=== PATIENT | male | born 1995 | race Caucasian/White ===

== ENCOUNTER 2021-12-11 08:31 | Outpatient (REF) | payer SELFPAY | END 2021-12-11 08:32 | disposition home or self-care (01) | LOC: HO.HOSX 08:31 | PROVIDERS: Visit Provider Physician Assistant | DX: Z13.89 Encounter for screening for other disorder (principal) ==

== ENCOUNTER 2021-12-12 07:47 | Outpatient (REF) | payer OTHER, SELFPAY ==
--- NOTE | ~2021-12-12 | XR_ITS ---
EXAMINATION: XR SHOULDER, RIGHT CLINICAL INFORMATION: Pain COMPARISON: None TECHNIQUE: 3 views of the right shoulder. FINDINGS: The bones and soft tissues are normal. No fracture. Glenohumeral and acromioclavicular alignment is anatomic with normal joint space. No abnormal soft tissue calcifications. XR/XR shoulder RT min 2V IMPRESSION: Normal right shoulder.
== END 2021-12-12 07:48 | disposition home or self-care (01) ==
LOC: HO.HOSX 07:47
PROVIDERS: Visit Provider Physician Assistant
DX: M25.511 Pain in right shoulder (principal); M25.311 Other instability, right shoulder; M24.811 Other specific joint derangements of right shoulder, not elsewhere classified
CPT/HCPCS: 73030

== ENCOUNTER 2022-05-22 06:06 | Day surgery (SDC) | payer OTHER, SELFPAY ==
--- NOTE | 2022-05-21 08:16 | HO.ANESPROP2 ---
Documented by User: Shefali Duvall NP 05/21/22 08:16 HPI - Anesthesia Eval Consult details Narrative: 26yo M for Right Shoulder Arthroscopy possible bicep tenodesis [facility] Active Problems Active Problems: All Active Problems (Updated 05/17/22 @ 16:22 by Leyla Flores RN) Internal derangement of right shoulder (Acute) Instability of right shoulder joint (Acute) Past Medical History Medical History Asthma Surgical History Surgical History History of hand surgery Social History Social History Alcohol intake: current Alcohol intake frequency: holidays/special occasions only Patient Tobacco Use Status: Former Tobacco user Current occupational status: employed Current occupation: [employer], right handed Meds Allergies Allergy/AdvReac Type Severity Reaction Status Date / Time No Known Allergies Allergy Verified 05/22/22 06:12 Home Medications Medication Instructions Recorded Confirmed Last Taken Type albuterol sulfate 90 mcg/actuation 2 puff inhalation QID PRN wheezing 05/17/22 05/17/22 Unknown History aerosol inhaler (Ventolin HFA) Exam Exam Date and Time: May 21, 2022 0816 Assessment and Plan Assessment Anesthesia Assessment: Chart Reviewed Documented by User: Isaiah Valdivia MD 05/22/22 16:07 [facility] Past Medical History Medical History Asthma Functional capacity: independent ambulation Family History Family history of problems with anesthesia: No Surgical History Surgical History History of hand surgery History of Problems with Anesthesia: No Social History Social History Alcohol intake: current Alcohol intake frequency: holidays/special occasions only Patient Tobacco Use Status: Former Tobacco user Current occupational status: employed Current occupation: [employer], right handed Meds Allergies Allergy/AdvReac Type Severity Reaction Status Date / Time No Known Allergies Allergy Verified 05/22/22 06:12 Home Medications Medication Instructions Recorded Confirmed Last Taken Type albuterol sulfate 90 mcg/actuation 2 puff inhalation QID PRN wheezing 05/17/22 05/17/22 Unknown History aerosol inhaler (Ventolin HFA) Exam Airway Mallampati Class: III TM Dist: >3cm Neck ROM: Full Loose/Missing/Broken Teeth: Yes Heart: S1,S2 Lungs: b/l breath sounds Assessment and Plan Assessment Anesthesia Assessment: Anesthesia Plan Discussed Final Anesthetic Review Family History of Problems with Anesthesia: No History of Problems with Anesthesia: No NPO: Yes ASA Class: II Final Preanesthetic Review: Meds/Allgs Chart Reviewed, Consent Obtained/Reviewed and Anes Risks/Benef Reviewed Patient Risk: Intermediate Procedure Risk: Intermediate Anesthetic Plan Anesthetic Plan: GA and Regional Block Disposition: Standard PACU
[2022-05-22] VITALS (14 sets, daily range): BP systolic 123–157; BP diastolic 57–109; PULSE 58–92; RESP 15–18; TEMP 36.1–36.5; O2SAT 97–99; BMI 26.6
[2022-05-22] MEDS: Lactated Ringers 1,000 ML 100 ML IVCONT (06:41)
--- NOTE | 2022-05-22 09:07 | MHC.SHP ---
Pre-Procedural Eval Section A Date of Service: 05/22/22 The patient is an INPATIENT: No Changes since office visit: No Cold of Flu in the past 2 weeks, No New Medical Problems, No Changes in Medication and No Patient answered all questions The History & Physical has been completed within 30 days and I have reviewed it.: Yes Section B Chief Complaint: Other instability, right shoulder Allergies: Allergies Allergy/AdvReac Type Severity Reaction Status Date / Time No Known Allergies Allergy Verified 05/22/22 06:12 Plan I have reviewed the history and physical and performed a pertinent physical examination on my patient. No changes have occurred unless specified. Time Spent With Patient Time: Total time managing care of this patient today ____ minutes.
--- NOTE | 2022-05-22 09:08 | PM.OP ---
Brief Operative Note Date of Service: 05/22/22 Pre-op diagnosis: Right shoulder SLAP tear Post-op diagnosis: other (Right shoulder subscapularis tear and posterior labral tear) Procedure: RIght shoulder subscapularis repair and labral debridement Implants: Casanova and Nephew Helacoil 5.0 x1 Surgeon: Bora Donovan MD Anesthesia: GETA and regional Was an Surveillance Systems Engineer used for this Procedure?: Yes Surveillance Systems Engineer: Shira Zaragoza Estimated blood loss (mL): 10 IV fluids (mL): 1,000 Pathology: none sent Condition: stable Disposition: PACU
[2022-05-22] MEDS: HYDROmorphone HCl 0.5 MG/0.5 ML SYRINGE 0.25 MG IVPUSH ×4 (09:44→10:27)
[2022-05-22] MEDS: oxyCODONE HCl Immed Release 5 MG TABLET PO (09:44)
[2022-05-22] MEDS: Acetaminophen 1,000 MG/100 ML PIGGYBACK 400 MG IV (10:02)
--- NOTE | 2022-05-23 08:52 | W.PM.OPN ---
Operative Note Operative Note Date of Service: 05/22/22 Narrative: Date of Service: 05/22/22 Pre-op diagnosis: Right shoulder SLAP tear Post-op diagnosis: other (Right shoulder subscapularis tear and posterior labral tear) Procedure: RIght shoulder subscapularis repair and labral debridement Implants: Casanova and Nephew Helacoil 5.0 x1 Surgeon: Bora Donovan MD Anesthesia: GETA and regional Was an Drum Printer used for this Procedure?: Yes Drum Printer: Shira Zaragoza Estimated blood loss (mL): 10 IV fluids (mL): 1,000 Pathology: none sent Condition: stable Disposition: PACU Procedure in detail: Procedure in detail: Patient was brought to the operating room and placed the the beach chair position. All bony prominences were well padded and the limb was prepped and draped in standard sterile fashion. A time out was called to identify proper site, proper procedure and proper surgeon. IV antibiotics per weight were administered. I began by making a posterolateral stab incision with a 15 blade. A blunt trochar was placed into the glenohumeral joint and I insufflated the joint with saline and a 30 degree arthroscope was placed. I established an outside- in anterior portal just distal to the biceps tendon. I then began my inspection of the glenohumeral joint. The biceps/superior labral complex was intact. There was fraying of the posterior labrum and an assoicated Uriarte lesion. There was no undersurface superior RTC tearing. There was however a high grade partial thickness tear of the subscapularis. There was partial delamination off the superior aspect of the subscapularis. There were intact fibers attached to the humeral insertion. I used a shaver to debride the loose tissue. I then pleaced 2 mini tapes through the torn portion of the tendon in a matress configuration. There was little reapproximate as the tearing had not resulted in retraction. I then debrided the humeral insertion down to bleeding bone and, while in internal rotation, brought the four limbs of the suture to a 5.0 Casanova and Nephew knotless Helacoil. I was satisfied with the repair. I then debrided the posterior labral fraying. There was nothing to repair and the Uriarte lesion was not addressed as there did not appear to be any additional RTC involvement. Once I was satisfied with the repair final images were captured and I removed all instrumentation. Portals were closed with nylon. Patient was placed in an abduction sling, extubated and brought to the recovery room in stable condition. There were no known complications.
== END 2022-05-22 11:41 | disposition home or self-care (01) ==
PROVIDERS: Visit Provider Orthopaedic Surgery
PROC: (CPT 29805; principal; 2022-05-22 07:30)
DX: S46.011A Strain of muscle(s) and tendon(s) of the rotator cuff of right shoulder, initial encounter (principal); M25.311 Other instability, right shoulder; X58.XXXA Exposure to other specified factors, initial encounter; Y93.9 Activity, unspecified; Y92.9 Unspecified place or not applicable; Y99.8 Other external cause status; J45.909 Unspecified asthma, uncomplicated; Z79.899 Other long term (current) drug therapy; Z87.891 Personal history of nicotine dependence
CPT/HCPCS: 29827; C1713; J0131; J0171; J0690; J1170; J2250; J2405; J2795; J3010

== ENCOUNTER → 2022-05-31 10:24 | Outpatient (BNVA) | payer OTHER, MEDICAID, SELFPAY | PROVIDERS: Visit Provider Physician Assistant | DX: Z13.89 Encounter for screening for other disorder (principal) ==

== ENCOUNTER → 2022-06-28 10:10 | Outpatient (BNVA) | payer OTHER, SELFPAY | PROVIDERS: Visit Provider Physician Assistant | DX: Z13.89 Encounter for screening for other disorder (principal) ==

== ENCOUNTER → 2022-08-16 10:25 | Outpatient (BNVA) | payer OTHER, SELFPAY | PROVIDERS: Visit Provider Physician Assistant | DX: M25.311 Other instability, right shoulder (principal) | CPT/HCPCS: 99212 ==

== ENCOUNTER 2022-09-04 13:00 | Outpatient (RCR) | payer OTHER, SELFPAY ==
--- NOTE | 2022-06-26 11:58 | MHC.PT.OD ---
[facility] [place] Office [place] Office [place] Office [address] [place] Diop [address] [phone] F: [phone] F: [phone] F: [phone] F: [phone] Physical Therapy Daily Note Diagnosis: M25.311 Other instability right shoulder s/p right shoulder subscapularis repair and labral debridement 05/22/22, instability of R shoulder joint signed by Dr. Donovan 05/30/22 Date of Surgery: 05/22/22 Date of Evaluation: 06/05/22 Date of Treatment: 06/19/22 Treatments to Date: Cancellations to Date: No Shows to Date: Authorized Visits: 3 Insurance End Date: Precautions/ Contraindications:Right shoulder subscapularis repair and labral debridement by Dr. Donovan Obtained updated script from DR. Donovan office with additional notes/instructions: S/p R shoulder subscapularis repair and labral debridement, FF 90, ER neutral, ABD 90 date of note 06/05/22 signed by Alivia Zaragoza PA-C Subjective: Pt IS 4WKS post op, reports sustained a fall up the stairs last week. He expresses he sustained an abrasion to the duff and protected his R shoulder was wearing sling. Does express soreness after falling. Pt expresses he continues to use pain medication. Pain Score and Location: Objective Flowsheet: Tests & Measures Inspection of incision: Anterior incision healed reddened area, slight eruption noted end of incision ? stitch Exercises REV PENDULUM AT PLINTH FOR A/P AND GENTLE PAINFREE PENDULUMS X 10 R EA, WRIST AND ELBOW ROM, FINGER MOTION/BALL SQUEEZES, REV MOTIONS TO AVOID AND SHLDER CARE, POSTURE, PROTOCOL, USE OF ICE SUP FOR PROM R SHLDER FLEX TO ~90DEGREES, ABD ~ 80 DEGREES, ER TO NEUTRAL (TOWEL ROLL UNDER UPPER ARM) PROM FOR L ELBOW EXTENSION, ELBOW FLEXION X 2 SETS 10R. Elbow PROM full ROM. Self care education review in use of sling, joint protection, use of red ball squeezes, elbow extension with removal of sling, sling use for hygiene and therapy Modalities Assessment: Pt has met ROM PROM goals for this stage of his recovery. Pt scheduled to see [facility] ortho on 06/28/22 for follow-up. Pt compliant with sling use, does express personal history of fall. No bruises. Incisions healed and intact. Pt does express history of falling up the stairs a few days ago. Reports use of sling at time of this. Pt does not appear to have any noted compromise of his repair (no history of bruising, no increased pain, good PROM tolerance this date). PT Plan: 1x/week for first 6 weeks, after 6 weeks 2x/week x 6 weeks per protocol ROM guidelines Short Term Goals: 1. AAROM to R shoulder flexion to 100 degrees per protocol when allowed. 2. AAROM to R shoulder scaption to 100 degrees per protocol when allowed. 3. Demonstrate good joint protection strategies in regard to sling use. 4. Scapular strength 4/5. Detention Goals: 1. I HEP. 2. AAROM R shoulder flexion to resemble uninvolved extremity. 3. Strength R shoulder 5/5 all planes. 4. Pt will demonstrate MOD I joint protection. Electronically signed by: Krysten Loredo, PT, DPT
--- NOTE | 2022-08-02 09:37 | MHC.PT.OD ---
[facility] [place] Office [place] Office [place] Office [address] [place] Diop 140 [facility] [phone] F: [phone] F: [phone] F: [phone] F: [phone] Physical Therapy Daily Note Diagnosis: M25.311 Other instability right shoulder s/p right shoulder subscapularis repair and labral debridement 05/22/22, instability of R shoulder joint signed by Dr. Donovan 05/30/22 Date of Surgery: 05/22/22 Date of Evaluation: 06/05/22 Date of Treatment: 07/24/22 Treatments to Date: Cancellations to Date: No Shows to Date: Authorized Visits: 9 Insurance End Date: Precautions/ Contraindications:Right shoulder subscapularis repair and labral debridement by Dr. Donovan Obtained updated script from DR. Donovan office with additional notes/instructions: S/p R shoulder subscapularis repair and labral debridement, FF 90, ER neutral, ABD 90 date of note 06/05/22 signed by Alivia Zaragoza PA-C Subjective: Doing the exercises. Pain Score and Location: Objective Flowsheet: Tests & Measures [facility] [address] [place] [address] [place] [id number] Office Visit Report Signed Patient: Jonathan Monroe [facility]#: [id number] : 1995Acct:[id number] Age/Sex: 26 / MADM/SER Date: 06/28/22 Loc: HO.HOSADM/SER Time:1010 Attending Provider: Shweta Bone PA-C cc: Shweta Bone PA-C; Physician,Unknown ~ Intake Intake Visit Reasons: Post Op - Right SHLD , 05/22/22 NE Intake Note: Jonathan is a 26 year old who presents today for a follow up s/p right shoulder , 05/22/22 NE. Patient states that he is still having pain that doesn't let him sleep. He states still having on and off discomfort since the surgery. Denies numbness and tingling. Allergies No Known Allergies Allergy (Verified 06/28/22 10:18) HPI Post Op - Right SHLD , 05/22/22 NE HPI Details 26-year-old right hand dominant male who presents in the office today 1 month status post right shoulder subscapularis repair and labral debridement, which was performed on 05/22/[address] Donovan. The patient states he is still having pain that is keeping him from sleeping. He also states he has had intermittent discomfort since the surgery. He denies numbness or tingling. Patient reports falling while ambulating up the stairs last week. [facility], [facility] Medical History Asthma Surgical History History of hand surgery Social History Alcohol intake: current Alcohol intake frequency: holidays/special occasions only Patient Tobacco Use Status: Former Tobacco user Current occupational status: employed Current occupation: [employer], right handed Review of Systems Const All systems reviewed & are unremarkable except as noted in HPI and below Physical Exam Extrem Other: Right shoulder: Forward flexion to 90 degrees. Abduction to 45 degrees. External rotation is 10 degrees past neutral. Incision site is well approximated and healed. No signs of infection. NVI. Assessment & Plan Assessment & Plan (1) Instability of right shoulder joint: Code(s): M25.311 - Other instability, right shoulder Plan Mr. Monroe is a 26-year-old right hand dominant male who presents in the office today 1 month status post right shoulder subscapularis repair and labral debridement, which was performed on 05/22/[address] Donovan. The patient states he is still having pain that is keeping him from sleeping. He also states he has had intermittent discomfort since the surgery. He denies numbness or tingling. Patient reports falling while ambulating up the stairs last week. The patient may discontinue the sling at 6 weeks post operative. He will continued with physical therapy. Follow up will be in 6 weeks for a ROM check, or sooner if needed. Patient Instructions: Scribed for Shweta Bone PA-C by Ramonita Del Toro medical sociologist, on 06/28/2022 at 10:12 am, RAGHU. Alexis, Shweta Bone PA-C, have personally reviewed and agreed with the information entered by the medical sociologist. Coding Level of Care Code Global (53508) Diagnoses Instability of right shoulder joint M25.311 Documented By:Shweta Bone06/28/22 1013 Signed By:<Electronically signed by Shweta Bone>06/28/22 1034 Incision healed and scabbed over- Noted skin irritation consistent with presentation of eczema medial R elbow crease. Exercises AAROM table slides for shoulder flexion (140 degrees) and scaption (120 degrees) x 10 sec hold x 2 sets 5R each, AAROM cane flexion in supine x 10 sec hold x 10R each, iso scap squeezes x 3 sets 10R against roller against wall with arms by side, no ER/IR. Pt educated re: safety for home program, prone row to neutral x 2 sets 10R, AAROM flexion with plinth elevated with R LE lowering x 2 sets 5R. Prone for row with no added weight x 2 sets 10R, standing elevation with aide of lowering x 2 sets 5R. Reviewed safety/precautions in regards to subscap repair No ER beyond neutral. No lifting/pushing/pulling. Reiterated although not wearing sling needs to be cautious in regards to sx. Reiterated joint protection in regard to not playing basketball- HELD PROM good ROM AAROM observed this date-ER does not need stretching- pt observed moving ER beyond neutral at times during mobility-reiterated no AROM beyond neutral. Ice to R shoulder in supine with pillow under UE x 10 minutes at end of session. Modalities Assessment: 07/27/22: Pt reports doing his AAROM exercises daily, concern for lack of precautions in daily life (ie: reports picking up his son, reports playing basketball). Pt has demonstrated poor attendance history in recent visits and requires reiteration of safety/joint protection in regard to repair. 07/24/22: PT N/S for his 10am appt in therapy (after confirming his appt with him verbally last week), second time N/S. (PT NS last week and was accommodated to a different appt time). Office called patient who did not answer his call. He later called back and was booked for another appt for later in the week). Pt was educated in the importance of compliance with attendance. PT Plan: 1x/week for first 6 weeks, after 6 weeks 2x/week x 6 weeks per protocol ROM guidelines Short Term Goals: 1. AAROM to R shoulder flexion to 100 degrees per protocol when allowed. 2. AAROM to R shoulder scaption to 100 degrees per protocol when allowed. 3. Demonstrate good joint protection strategies in regard to sling use. 4. Scapular strength 4/5. Medicaid Billing Specialist Goals: 1. I HEP. 2. AAROM R shoulder flexion to resemble uninvolved extremity. 3. Strength R shoulder 5/5 all planes. 4. Pt will demonstrate MOD I joint protection. Electronically signed by: Krysten Loredo, PT, DPT
== END 2023-07-02 12:08 | disposition home or self-care (01) ==
LOC: HO.PTWFD 13:00
PROVIDERS: Visit Provider Physician Assistant
DX: M25.311 Other instability, right shoulder (principal); Z98.890 Other specified postprocedural states
CPT/HCPCS: 97110; 97140; 97161; 97535

== ENCOUNTER → 2022-10-08 11:30 | Outpatient (BNVA) | payer OTHER, SELFPAY | PROVIDERS: Visit Provider Physician Assistant | DX: M24.811 Other specific joint derangements of right shoulder, not elsewhere classified (principal); M25.311 Other instability, right shoulder; Z98.890 Other specified postprocedural states | CPT/HCPCS: 99212 ==

== ENCOUNTER 2022-11-09 09:00 | Outpatient (RCR) | payer OTHER, SELFPAY ==
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
--- NOTE | 2022-12-07 13:55 | MHC.PT.DC ---
[facility] [place] Office [place] Office [place] Office [address] [place] Diop [address] [phone] F: [phone] F: [phone] F: [phone] F: [phone] Physical Therapy Discharge Report Diagnosis: S/P ARTHROSCOPY R SHLDER, INTERNAL DERANGEMENT R SHLDER, INSTABILITY R SHLDER JT Date of Surgery: 05/22/23 Date of Evaluation: 10/23/22 Date of Discharge: 12/07/22 Treatments to Date: 2 Cancellations to Date: 4 No Shows to Date: Discharge Status: Independent with HEP Patient Elected to Stop Recommend MD Follow-up Visit Non-compliance Discharge Summary: Pt SEEN FOR INIT EVAL AND 3 VISITS. PER ASSESSMENT AT THAT VISIT FROM THAT VISIT :'GOOD PERF EXS. SHOULD BENEFIT FROM 1X/WK X 2 MORE WEEKS. REV GOALS. OF NOTE, Pt REPORTS WAS SUPPOSED TO HAVE PT FOR BACK BEFORE SHLDER SURGERY. ED THAT WE CAN ADDRESS BACK IF HE GETS SCRIPT . Pt THEN NO SHOWED LAST 3 SESSIONS Electronically signed by: DOMINGO PATTERSON PT Please sign and return to therapist. Thank you for your referral.
== END 2022-12-07 13:55 | disposition home or self-care (01) ==
LOC: HO.PT 09:00
PROVIDERS: PCP Family Medicine; Visit Provider Physician Assistant
DX: M24.811 Other specific joint derangements of right shoulder, not elsewhere classified (principal); M25.311 Other instability, right shoulder; Z98.890 Other specified postprocedural states
CPT/HCPCS: 97110; 97140; 97161; 97530; 97535